=== PATIENT | male | born 1970 | race Caucasian/White ===

== ENCOUNTER 2018-09-13 18:23 | Inpatient (IN) | payer BC ==
[2018-09-13] MEDS ORDERED: SODIUM CHLORIDE 0.9% 2,000 ML IV STA (18:43)
[2018-09-13] MEDS ORDERED: PIPERACILLIN-TAZOBACTAM 3.375 GM in SODIUM CHLORIDE 0.9% 100 ML IVPB STA (18:44)
--- NOTE | 2018-09-13 19:18 | ED ---
Abdominal Pain HPI - General Source: patient, family, RN notes reviewed Mode of arrival: ambulatory Limitations: no limitations <Kemar Padron - Last Filed: 09/13/18 19:59> <Madhu Trujillo - Last Filed: 09/13/18 20:46> - General Chief Complaint: Abdominal Pain Stated Complaint: Appendix issue, sent by DR Herrera Seen by Provider: 09/13/18 18:43 - History of Present Illness Initial Comments: 48-year-old male presents emergency Department chief complaint right-sided abdominal pain. Patient states he had severe pain 2 weeks ago was seen by PCP on Monday and had CT ordered today. Patient states he had CT was called informed that he has acute appendicitis. Patient states still has pain and right lower quadrant. He denies any dysuria, hematuria, melena, hematochezia. Patient states he still is eating at this point. Patient has not seen a recent general surgeon. Patient states that he has some right lower abdominal swelling. (Kemar Padron) - Related Data Home Medications Medication Instructions Recorded Confirmed Amoxic-Pot Clav 875-125Mg 1 tab PO Q12HR 09/13/18 09/13/18 [Augmentin 875-125] Lisinopril-Hctz 20-25 mg 1 tab PO DAILY 09/13/18 09/13/18 [Zestoretic 20-25] metFORMIN HCL [Glucophage] 500 mg PO BID 09/13/18 09/13/18 Allergies Allergy/AdvReac Type Severity Reaction Status Date / Time No Known Allergies Allergy Verified 09/13/18 18:52 Review of Systems ROS Other: All systems not noted in ROS Statement are negative. <Kemar Padron - Last Filed: 09/13/18 19:59> ROS Other: All systems not noted in ROS Statement are negative. <Madhu Trujillo - Last Filed: 09/13/18 20:46> ROS Statement: Those systems with pertinent positive or pertinent negative responses have been documented in the HPI. Past Medical History Past Medical History: Diabetes Mellitus, Hypertension History of Any Multi-Drug Resistant Organisms: None Reported Past Surgical History: No Surgical Hx Reported Past Psychological History: No Psychological Hx Reported Smoking Status: Never smoker Past Alcohol Use History: None Reported Past Drug Use History: None Reported <Kemar Padron - Last Filed: 09/13/18 19:59> General Exam Limitations: no limitations General appearance: alert, in no apparent distress Head exam: Present: atraumatic, normocephalic, normal inspection Respiratory exam: Present: normal lung sounds bilaterally. Absent: respiratory distress, wheezes, rales, rhonchi, stridor Cardiovascular Exam: Present: regular rate, normal rhythm, normal heart sounds. Absent: systolic murmur, diastolic murmur, rubs, gallop, clicks GI/Abdominal exam: Present: soft, tenderness (Minimal Right lower), normal bowel sounds. Absent: distended, guarding, rebound, rigid Back exam: Absent: CVA tenderness (R), CVA tenderness (L) Skin exam: Present: warm, dry, intact, normal color. Absent: rash <Kemar Padron - Last Filed: 09/13/18 19:59> Course <Kemar Padron - Last Filed: 09/13/18 19:59> <Madhu Trujillo - Last Filed: 09/13/18 20:46> Vital Signs 09/13/18 09/13/18 09/13/18 18:33 19:43 20:26 Temperature 98.5 F 98.3 F Pulse Rate 78 77 Respiratory 18 17 Rate Blood Pressure 133/76 160/79 O2 Sat by Pulse 94 L 95 Oximetry - Reevaluation(s) Reevaluation #1: 09/13/18 20:02 PA supervision: I proceeded [id number] evaluation the patient did discuss the findings with him and his . Patient did have the onset of lower abdominal pain approximately 2 weeks ago. Is very severe initially has gotten better since. Now is just a dull sensation. He was seen by his doctor and had a CAT scan done which did show evidence of acute appendicitis. On exam he has no tenderness at this time he does have some evidence of some outpouchingof his right lower quadrant however. I did discuss the CAT scan findings and the case with Dr. Drake. Patient will be admitted he'll be nothing by mouth after midnight IV antibiotics. (Madhu Trujillo) Medical Decision Making - Lab Data Result diagrams: 09/13/18 19:03 09/13/18 19:03 <Kemar Padron - Last Filed: 09/13/18 19:59> - Lab Data Result diagrams: 09/13/18 19:03 09/13/18 19:03 - EKG Data -: EKG Interpreted by [facility] EKG shows normal: sinus rhythm (EKG shows normal sinus rhythm a 71 appear interval 184 QRS duration 160 QT since QTC 380/413 incomplete right bundle- branch block) <Madhu Trujillo - Last Filed: 09/13/18 20:46> - Medical Decision Making 48-year-old male presented for abnormal abdominal CT. Patient CT shows evidence of acute appendicitis. Patient case discussed with Dr. Wise who except admission nothing by mouth at midnight, clear liquids at this time and Zosyn for antibiotics. (Kemar Padron) - Lab Data Lab Results 09/13/18 09/13/18 Range/Units 19:03 19:03 WBC 13.3 H (3.8-10.6) k/uL RBC 5.02 (4.30-5.90) m/uL Hgb 14.7 (13.0-17.5) gm/dL Hct 44.1 (39.0-53.0) % MCV 87.9 (80.0-100.0) fL MCH 29.3 (25.0-35.0) pg MCHC 33.4 (31.0-37.0) g/dL RDW 13.0 (11.5-15.5) % Plt Count 391 (150-450) k/uL Neutrophils % 62 % Lymphocytes % 28 % Monocytes % 5 % Eosinophils % 2 % Basophils % 1 % Neutrophils # 8.3 H (1.3-7.7) k/uL Lymphocytes # 3.7 (1.0-4.8) k/uL Monocytes # 0.7 (0-1.0) k/uL Eosinophils # 0.3 (0-0.7) k/uL Basophils # 0.1 (0-0.2) k/uL Sodium 140 (137-145) mmol/L Potassium 4.6 (3.5-5.1) mmol/L Chloride 102 (98-107) mmol/L Carbon Dioxide 26 (22-30) mmol/L Anion Gap 12 mmol/L BUN 20 (9-20) mg/dL Creatinine 1.01 (0.66-1.25) mg/dL Est GFR (CKD-EPI)AfAm >90 (>60 ml/min/1.73 sqM) Est GFR (CKD-EPI)NonAf 87 (>60 ml/min/1.73 sqM) Glucose 116 H (74-99) mg/dL Calcium 10.0 (8.4-10.2) mg/dL Total Bilirubin 0.5 (0.2-1.3) mg/dL AST 36 (17-59) U/L ALT 52 (21-72) U/L Alkaline Phosphatase 94 (38-126) U/L Total Protein 7.5 (6.3-8.2) g/dL Albumin 4.6 (3.5-5.0) g/dL Amylase 65 (30-110) U/L Lipase 102 (23-300) U/L Disposition <Kemar Padron - Last Filed: 09/13/18 19:59> <Madhu Trujillo - Last Filed: 09/13/18 20:46> Clinical Impression: Acute appendicitis Disposition: ADMITTED IP TO THIS HOSP Condition: Stable
[2018-09-13 19:19] LABS: Basophils # (A) 0.1 k/uL (0-0.2); Basophils % (A) 1 %; Eosinophils # (A) 0.3 k/uL (0-0.7); Eosinophils % (A) 2 %; HCT 44.1 % (39.0-53.0); HGB 14.7 gm/dL (13.0-17.5); Lymphocytes # (A) 3.7 k/uL (1.0-4.8); Lymphocytes % (A) 28 %; MCH 29.3 pg (25.0-35.0); MCHC 33.4 g/dL (31.0-37.0); MCV 87.9 fL (80.0-100.0); Monocytes # (A) 0.7 k/uL (0-1.0); Monocytes % (A) 5 %; Neutrophils # (A) 8.3 k/uL (1.3-7.7); Neutrophils % (A) 62 %; Platelet Count 391 k/uL (150-450); RBC 5.02 m/uL (4.30-5.90); WBC 13.3 k/uL (3.8-10.6)
[2018-09-13 19:35] LABS: ALT 52 U/L (21-72); AST 36 U/L (17-59); Albumin 4.6 g/dL (3.5-5.0); Alkaline Phosphatase 94 U/L (38-126); Amylase 65 U/L (30-110); Anion Gap 12 mmol/L; Blood Urea Nitrogen 20 mg/dL (9-20); Carbon Dioxide 26 mmol/L (22-30); Chloride 102 mmol/L (98-107); Glucose 116 mg/dL (74-99); Lipase 102 U/L (23-300); Potassium 4.6 mmol/L (3.5-5.1); Sodium 140 mmol/L (137-145); Total Bilirubin 0.5 mg/dL (0.2-1.3); Total Protein 7.5 g/dL (6.3-8.2)
[2018-09-13] MEDS ORDERED: NALOXONE 0.4 MG/ML 1 ML VIAL IV PRN (20:01)
[2018-09-13] MEDS ORDERED: HYDROmorphone 1 MG/ML 1 ML SYRINGE IVP PRN (20:01)
[2018-09-13] MEDS ORDERED: ONDANSETRON 4 MG/2 ML VIAL IVP PRN (20:01)
[2018-09-13 20:32] LABS: Appearance,Urine Clear (Clear); Bilirubin,Urine Negative (Negative); Blood,Urine Negative (Negative); Color,Urine Light Yellow; Glucose,Urine (UA) Negative (Negative); Ketones,Urine Negative (Negative); Leukocyte Esterase,Urine Negative (Negative); Nitrite,Urine Negative (Negative); PH, Urine 6.5 (5.0-8.0); Protein,Urine Negative (Negative); Urobilinogen,Urine <2.0 mg/dL (<2.0)
[2018-09-13 21:04] VITALS: BMI 40.9
[2018-09-14] MEDS: SODIUM CHLORIDE 0.9% 1,000 ML IV SCH ×3 (05:53→15:47)
[2018-09-14] MEDS: PIPERACILLIN-TAZOBACTAM 3.375 GM in SODIUM CHLORIDE 0.9% 100 ML IVPB SCH ×3 (05:53→21:45)
[2018-09-14] MEDS ORDERED: ceFAZolin 3 GM in SODIUM CHLORIDE 0.9% 100 ML IVPB ONE ×2 (07:48→14:00)
[2018-09-14] MEDS ORDERED: ACETAMINOPHEN IV (For NPO) 1,000 MG in EMPTY BAG 1 BAG IVPB ONE (07:48)
[2018-09-14] MEDS ORDERED: ENOXAPARIN 40 MG/0.4 ML SYRINGE SQ STA (07:48)
[2018-09-14 08:29] LABS: Basophils # (A) 0.1 k/uL (0-0.2); Basophils % (A) 1 %; Eosinophils # (A) 0.3 k/uL (0-0.7); Eosinophils % (A) 3 %; HCT 44.5 % (39.0-53.0); HGB 14.1 gm/dL (13.0-17.5); Lymphocytes # (A) 2.6 k/uL (1.0-4.8); Lymphocytes % (A) 25 %; MCH 28.8 pg (25.0-35.0); MCHC 31.8 g/dL (31.0-37.0); MCV 90.4 fL (80.0-100.0); Mean Platelet Volume 6.3; Monocytes # (A) 0.5 k/uL (0-1.0); Monocytes % (A) 5 %; Neutrophils # (A) 6.4 k/uL (1.3-7.7); Neutrophils % (A) 64 %; Platelet Count 346 k/uL (150-450); RBC 4.92 m/uL (4.30-5.90); RDW 13.1 % (11.5-15.5); WBC 10.1 k/uL (3.8-10.6)
[2018-09-14] MEDS: LISINOPRIL-HCTZ 20-25 MG 1 EACH TAB PO SCH (12:36)
--- NOTE | 2018-09-14 12:46 | P.GSHP ---
History of Present Illness H&P Date: 09/14/18 CHIEF COMPLAINT: Acute appendicitis HISTORY OF PRESENT ILLNESS: The patient is a 48-year-old male who presents with initial 3 week history of bilateral lower abdominal pain. 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 He reports that his abdominal pain grew worse over the last 2 days. No reports of nausea or vomiting. He states the intensity of the pain is moderate at the right lower quadrant. He presented with CT abdomen and pelvis consistent with acute appendicitis and with WBC over 13, 000 hence general surgery admission. PAST MEDICAL HISTORY: See list. PAST SURGICAL HISTORY: See list. CURRENT MEDICATIONS: See list. ALLERGIES: See list. SOCIAL HISTORY: Non-tobacco user. FAMILY HISTORY: Denies Crohns disease and ulcerative colitis. REVIEW OF ORGAN SYSTEMS: CONSTITUTIONAL: Denies any fever or chills. Denies recent weight loss. HEENT: Denies any trouble with vision, hearing or nosebleeds. No difficulty swallowing. LYMPHATIC: The patient denies any lumps and bumps around the neck. ENDOCRINE: Denies any thyroid disorders. Has blood sugar glucose intolerance. RESPIRATORY: Denies shortness of breath including chronic cough. Has sleep apnea CARDIOVASCULAR: Denies history of chest pain with exertion. GASTROINTESTINAL: Denies regurgitation of bile at night as well as intermittent nausea. No blood in stools. GENITOURINARY: Denies any blood in urine or increased urinary frequency. MUSCULOSKELETAL: Has current joint arthritis. Has back pain. NEUROLOGIC: Denies any numbness or tingling along the distal extremities. No seizure disorders or headaches. PSYCHIATRIC: Denies any depression or suicidal ideation. HEMATOLOGIC: Denies any abnormal bleeding or bruising. PHYSICAL EXAMINATION: GENERAL: Well developed and in no acute distress. Pleasant. HEENT: No sclera icterus. Extraocular movements grossly intact. Moist buccal mucosa. Head is atraumatic, normocephalic. Hears conversational speech. No nasal drainage. NECK: Supple without lymphadenopathy. No JV distention. CHEST: Non-labored respirations and equal bilateral excursions. CARDIOVASCULAR: Regular rate and rhythm. Palpable 2+ radial pulses. ABDOMEN: Soft, tender at the right lower quadrant without guarding. MUSCULOSKELETAL: No clubbing, cyanosis or edema. NEUROLOGIC: No focal or lateralizing signs. PSYCH: Appropriate affect. Alert and oriented to person, place and time. SKIN: Well perfused. Good skin turgor. LABS: Reviewed STUDIES: CT of the abdomen and pelvis reviewed with findings consistent with appendicitis. ASSESSMENT: 1. Right lower quadrant pain. 2. Appendicitis. 3. Leukocytosis. PLAN: 1. I have discussed benefits and risks of robotic appendectomy. 2. Bilateral SCDs. 3. Antibiotics. 4. DVT prophylaxis with heparin. 5. GI prophylaxis. Thank you very much for allowing me to participate in the care of your patient. Past Medical History Past Medical History: Diabetes Mellitus, Hypertension, Sleep Apnea/CPAP/BIPAP Additional Past Medical History / Comment(s): uses cpap machine History of Any Multi-Drug Resistant Organisms: None Reported Past Surgical History: No Surgical Hx Reported Past Anesthesia/Blood Transfusion Reactions: No Reported Reaction Additional Past Anesthesia/Blood Transfusion Reaction / Comment(s): pt has never had general aa Smoking Status: Never smoker - Past Family History Mother Family Medical History: Hypertension Additional Family Medical History / Comment(s): heart disease on mom's side of family Father History Unknown: Yes Medications and Allergies Home Medications Medication Instructions Recorded Confirmed Type Amoxic-Pot Clav 875-125Mg 1 tab PO Q12HR 09/13/18 09/13/18 History [Augmentin 875-125] Lisinopril-Hctz 20-25 mg 1 tab PO DAILY 09/13/18 09/13/18 History [Zestoretic 20-25] metFORMIN HCL [Glucophage] 500 mg PO BID 09/13/18 09/13/18 History Allergies Allergy/AdvReac Type Severity Reaction Status Date / Time No Known Allergies Allergy Verified 09/13/18 18:52 Surgical - Exam Vital Signs Temp Pulse Resp BP Pulse Ox 98.5 F 78 18 133/76 94 L 09/13/18 18:33 09/13/18 18:33 09/13/18 18:33 09/13/18 18:33 09/13/18 18:33 Results - Labs 09/14/18 08:02 09/13/18 19:03 Abnormal Lab Results - Last 24 Hours (Table) 09/13/18 09/13/18 Range/Units 19:03 19:03 WBC 13.3 H (3.8-10.6) k/uL Neutrophils # 8.3 H (1.3-7.7) k/uL Glucose 116 H (74-99) mg/dL Diabetes panel 09/13/18 Range/Units 19:03 Sodium 140 (137-145) mmol/L Potassium 4.6 (3.5-5.1) mmol/L Chloride 102 (98-107) mmol/L Carbon Dioxide 26 (22-30) mmol/L BUN 20 (9-20) mg/dL Creatinine 1.01 (0.66-1.25) mg/dL Glucose 116 H (74-99) mg/dL Calcium 10.0 (8.4-10.2) mg/dL AST 36 (17-59) U/L ALT 52 (21-72) U/L Alkaline Phosphatase 94 (38-126) U/L Total Protein 7.5 (6.3-8.2) g/dL Albumin 4.6 (3.5-5.0) g/dL Calcium panel 09/13/18 Range/Units 19:03 Calcium 10.0 (8.4-10.2) mg/dL Albumin 4.6 (3.5-5.0) g/dL Pituitary panel 09/13/18 Range/Units 19:03 Sodium 140 (137-145) mmol/L Potassium 4.6 (3.5-5.1) mmol/L Chloride 102 (98-107) mmol/L Carbon Dioxide 26 (22-30) mmol/L BUN 20 (9-20) mg/dL Creatinine 1.01 (0.66-1.25) mg/dL Glucose 116 H (74-99) mg/dL Calcium 10.0 (8.4-10.2) mg/dL Adrenal panel 09/13/18 Range/Units 19:03 Sodium 140 (137-145) mmol/L Potassium 4.6 (3.5-5.1) mmol/L Chloride 102 (98-107) mmol/L Carbon Dioxide 26 (22-30) mmol/L BUN 20 (9-20) mg/dL Creatinine 1.01 (0.66-1.25) mg/dL Glucose 116 H (74-99) mg/dL Calcium 10.0 (8.4-10.2) mg/dL Total Bilirubin 0.5 (0.2-1.3) mg/dL AST 36 (17-59) U/L ALT 52 (21-72) U/L Alkaline Phosphatase 94 (38-126) U/L Total Protein 7.5 (6.3-8.2) g/dL Albumin 4.6 (3.5-5.0) g/dL - Imaging CT scan - abdomen: report reviewed, image reviewed CT scan - pelvis: report reviewed, image reviewed (Imaging personally reviewed without findings of perforation) Assessment and Plan (1) Obstructive sleep apnea Current Visit: Yes Status: Acute Code(s): G47.33 - OBSTRUCTIVE SLEEP APNEA ( ADULT) (PEDIATRIC) SNOMED Code(s): 70128499 (2) Morbid obesity due to excess calories Current Visit: Yes Status: Acute Code(s): E66.01 - MORBID (SEVERE) OBESITY DUE TO EXCESS CALORIES SNOMED Code(s): 648789954 (3) Obesity, morbid, BMI 40.0-49.9 Current Visit: Yes Status: Acute Code(s): E66.01 - MORBID (SEVERE) OBESITY DUE TO EXCESS CALORIES SNOMED Code(s): 054025907 (4) Hypertensive heart disease Current Visit: Yes Status: Acute Code(s): I11.9 - HYPERTENSIVE HEART DISEASE WITHOUT HEART FAILURE SNOMED Code(s): 12718003 (5) Diabetes type 2, controlled Current Visit: Yes Status: Acute Code(s): E11.9 - TYPE 2 DIABETES MELLITUS WITHOUT COMPLICATIONS SNOMED Code(s): 14136027 (6) Acute appendicitis Current Visit: Yes Status: Acute Code(s): K35.80 - UNSPECIFIED ACUTE APPENDICITIS SNOMED Code(s): 87069753
[2018-09-14] MEDS ORDERED: ENOXAPARIN 40 MG/0.4 ML SYRINGE SQ SCH (14:00)
--- NOTE | 2018-09-14 16:37 | CONS ---
CONSULTATION DATE OF CONSULTATION: 09/13/2018 REASON FOR CONSULTATION: Medical management requested by Dr. Wise. CONSULTATION: This is a pleasant 48-year-old patient who follows with Dr. Campuzano. Chronic stable medical conditions include diabetes, hypertension, obstructive sleep apnea. The patient is here with his and mother. 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 Subsequently it settled down in 2 days and just remained as a dull ache. Patient simply decided to drive back. The patient's pain remained the same. The patient saw Dr. Campuzano about 8 days ago and just had slight discomfort in the right lower quadrant. He decided to get a CT scan done. That was done yesterday and did show acute appendicitis. The patient is able to get around with his usual activity. No nausea or vomiting. No fever. No chills. No change in his bowel movements. Patient was admitted for the same, now scheduled for surgery later today. REVIEW OF SYSTEMS: CONSTITUTIONAL: None. HEENT: None. RESPIRATORY: None. CARDIOVASCULAR: None. GASTROINTESTINAL: As above. GENITOURINARY: None. MUSCULOSKELETAL: None. DERMATOLOGICAL: None. HEMATOLOGICAL: None. LYMPHATICS: None. PSYCHIATRY: None. NEUROLOGICAL: None. PAST MEDICAL HISTORY: 1. Diabetes mellitus, type 2. 2. Hypertension. 3. Obstructive sleep apnea. Uses CPAP. PAST SURGICAL HISTORY: None. SOCIAL HISTORY: The patient is a mail room clerk. Does not smoke. Does not drink alcohol. . FAMILY HISTORY: Heart disease and hypertension. HOME MEDICATIONS: 1. Glucophage 500 mg b.i.d. 2. Zestoretic 20/25 one tablet p.o. daily. 3. Augmentin 875 one tablet p.o. q.12. ALLERGIES: NONE. PHYSICAL EXAMINATION: VITAL SIGNS ON PRESENTATION: Temperature 98.5, pulse 78, respiration 18, blood pressure 133/76, pulse ox 94% on room air. GENERAL APPEARANCE: Well built; BMI 40.9. Sitting up in a chair. Comfortable. EYES: Pupils equal. Conjunctivae normal. HEENT: External appearance of nose and ears normal. Oral cavity normal. NECK: JVD not raised. Mass not palpable. RESPIRATORY: Effort normal. Lungs are clear. CARDIOVASCULAR: First and second sounds normal. No edema. ABDOMEN: Soft, non-tender. Liver and spleen not palpable. LYMPHATIC: No lymph node palpable in neck or axillae. PSYCHIATRY: Alert and oriented x3. Mood and affect normal. NEUROLOGICAL: Pupils equal. Cranial nerves grossly intact. Power and sensation grossly intact. INVESTIGATIONS: White count 13.3, hemoglobin 14.7, potassium 4.6. UA negative. CT scan of the abdomen and pelvis from yesterday showed some hepatic steatosis and also possibly some gallstones; also evidence of possible appendicitis. ASSESSMENT: 1. Acute appendicitis. Highly doubt it but cannot rule out encased appendicular abscess. 2. Diabetes mellitus, type 2, on oral hypoglycemic. 3. Morbid obesity. BMI of 40.3. 4. Obstructive sleep apnea. Uses CPAP machine. PLAN: Patient is on IV Zosyn, IV fluids. Zestoretic will be resumed. Will hold off patient's metformin. Accu-Cheks will be followed. Lovenox for DVT prophylaxis. Care was discussed with the patient. Questions were answered. The patient is due to go down for surgery this afternoon. From a cardiovascular standpoint, patient is at low risk for surgery, with no contraindication to same. Care was discussed with the patient and family. Questions were answered. Thank you, Dr. Wise. MMBHAVNAL / IJN: [id number] /
[2018-09-14 16:40] LABS: Glucose,Whole Blood 70 mg/dL (75-99)
[2018-09-14] MEDS ORDERED: IV FLUID CONTINUATION 1,000 ML IV ONE ×2 (16:47)
[2018-09-14] MEDS ORDERED: fentaNYL (PF) 50 MCG/ML 2 ML AMP ONE (17:02)
[2018-09-14] MEDS ORDERED: HYDROmorphone (PF) 1 MG/ML ONE (17:02)
[2018-09-14] MEDS ORDERED: NEOSTIGMINE 1 MG/ML 10 ML VIAL ONE (17:02)
[2018-09-14] MEDS ORDERED: LIDOCAINE 1% INJ 10MG/ML (20 ML MDV) ONE (17:02)
[2018-09-14] MEDS ORDERED: GLYCOPYRROLATE 0.2 MG/ML 2 ML VIAL ONE (17:02)
[2018-09-14] MEDS ORDERED: MIDAZOLAM 2 MG/2 ML VIAL ONE (17:02)
[2018-09-14] MEDS ORDERED: SUCCINYLCHOLINE CHLORIDE 100 MG/5 ML SYR IV ONE (17:02)
[2018-09-14] MEDS ORDERED: PHENYLEPHRINE-0.9% NACL SYG 1 MG/10 ML SYRINGE ONE (17:02)
[2018-09-14] MEDS ORDERED: ROCURONIUM BROMIDE 10 MG/ML 10 ML VIAL IV ONE (17:02)
[2018-09-14] MEDS ORDERED: PROPOFOL 10 MG/ML 20 ML VIAL IV ONE (17:02)
[2018-09-14] MEDS: INSULIN ASPART (NovoLOG) 100 UNIT/ML VIAL SQ SCH ×2 (17:23→21:38)
[2018-09-14] MEDS ORDERED: BUPIVACAIN-EPI 0.25%-1:200,000 30 ML VIAL SQ ONE (17:29)
[2018-09-14] MEDS ORDERED: LACTATED RINGERS 1,000 ML IV ONE (17:39)
[2018-09-14 20:09] LABS: Glucose,Whole Blood 121 mg/dL (75-99)
[2018-09-14] MEDS ORDERED: NALOXONE 0.4 MG/ML 1 ML VIAL IV PRN (20:15)
--- NOTE | 2018-09-14 20:22 | P.OP ---
Date of Procedure: 09/14/18 Description of Procedure: SURGEON: GILDA WISE MD Preoperative Diagnosis: 1. Right lower quadrant abdominal pain 2. Acute appendicitis. 3. Diabetes type 2, controlled 4. Morbid obesity due to excess calories, BMI 40.9 5. Hypertensive heart disease 6. Obstructive sleep apnea Postoperative Diagnosis: 1. Right lower quadrant abdominal pain 2. Chronic appendicitis with localized rupture and peritonitis with phlegmon 3. Diabetes type 2, controlled 4. Morbid obesity due to excess calories, BMI 40.9 5. Hypertensive heart disease 6. Obstructive sleep apnea 7. Severe peritoneal adhesions right lower quadrant due to infection Procedure(s) Performed: 1. Robotic-assisted daVinci Xi laparoscopic lysis of adhesions over 1.5 hrs 2. Robotic-assisted daVinci Xi laparoscopic appendectomy 3. Placement of MIR drain #19 right lower quadrant Anesthesia: GETA, local Surgeon: Gilda Wise Estimated Blood Loss (ml): 50 Pathology: other (appendix, aerobic and anerobic culture of peritoneal fluid sent from MIR fluid sent separately) Condition: stable Disposition: floor Operative Findings: 1. Phlegmon along right lower quadrant consistent with previous rupture, chronic appendicitis over 3 weeks 2. Severe adhesions involving appendix from prior rupture 3. MIR drain placed at appendiceal stump 4. Risk of appendiceal stump blow out described to family and will continue on prolonged antibiotics with drain management INDICATIONS: The patient is a 48-year-old male who presents with appendicitis per CT scan. Surgical intervention was described in detail. Benefits and risks , including infection, open surgery, and possibility for additional surgery was discussed at length. Informed consent was obtained. All questions of the patient and family were answered. DESCRIPTION: The patient was transferred to the operating room and placed in supine position. The patient had previously voided. The abdomen was then prepped and draped in standard sterile fashion as Ioban was placed along the abdomen to minimize any contamination of skin floor. After a timeout protocol was performed, attention was then brought to the left upper quadrant whereby a 0 degree 5 mm laparoscopic trocar entry was performed. The abdominal cavity was entered and insufflated to 15 mmHg pressure, which was tolerated well. Diagnostic laparoscopy demonstrated no injury to bowel, viscera or mesentery. Adhesions were confirmed of the right lower quadrant of omentum, small bowel to the abdominal wall. Localized phlegmon was found. Next a robotic 12-mm trocar was placed along the right upper quadrant, 15-cm superior from the pelvis. A 8 mm port was placed along the left lower quadrant and another 8-mm port along the epigastrium. Ports were placed 10 cm apart from each other including 15-20 cm away from the target anatomy of the right pelvis. The patient was then placed in Trendelenburg position, at least 14 and right side up at least 6. The robotic da Epifanio XI system was primed and docked from the left side of the patient. Using atraumatic graspers and vessel sealer, the robotic system was docked and primed as described. Instruments were interchanged by the human resources assistant including graspers, robotic stapler and vessel sealer. Next, attention was brought to identify the cecum. A systematic view within the abdominal cavity was started with the small bowel which was remarkable for diffuse adhesions localized at the right lower quadrant. The base of the cecum was with inflammation. The appendix was ruptured near the base with moderate dissection performed over 1.5 hrs for dense concrete-like adhesions consistent with sub-acute to chronic appendiceal rupture. An abscess of less than 5-mL was aspirated from the abdomen. Staple loads 45 mm blue robotic staple loads were fired along the base of the appendix. The staple line was hemostatic. Hemostasis was checked prior to undocking the robot. The robot was undocked. I re-scrubbed into the case. A round #19 drain was placed via the left lower quadrant port and positioned at the right lower quadrant and pelvis after irrigating the abdomen with normal saline until the aspirant was clear. A drain stitch 2-0 nylon was placed with the bulb attached separately. The specimen was removed from the abdominal cavity with an Endo Catch bag through the 12 mm trocar at the right upper quadrant. All instruments and pneumoperitoneum were evacuated from the abdominal cavity. Local anesthetic was infiltrated to all wounds for postop analgesia. All incisions were also cleansed with diluted hydrogen peroxide. An Optifoam surgical dressing was placed over the right upper quadrant incision and drain site. Exofin glue was applied to the rest of the skin incisions. The patient had tolerated the procedure well. The patient was extubated successfully. The patient was transferred to the postanesthesia care unit in stable condition.
[2018-09-14] MEDS ORDERED: ONDANSETRON 4 MG/2 ML VIAL IVP ONE (20:38)
[2018-09-14] MEDS ORDERED: PROMETHAZINE INJ 25 MG/ML 1 ML VIAL IVPB ONE (20:45)
[2018-09-14] MEDS: HYDROmorphone 1 MG/ML 1 ML SYRINGE IVP ONE ×2 (20:50→21:02)
[2018-09-15] MEDS: SODIUM CHLORIDE 0.9% 1,000 ML IV SCH ×3 (01:36→21:35)
[2018-09-15] MEDS: HYDROmorphone 0.5 MG/0.5 ML SYRINGE IVP PRN ×2 (04:09→08:25)
[2018-09-15] MEDS: PIPERACILLIN-TAZOBACTAM 3.375 GM in SODIUM CHLORIDE 0.9% 100 ML IVPB SCH ×3 (04:27→20:24)
[2018-09-15 08:10] LABS: Glucose,Whole Blood 124 mg/dL (75-99)
[2018-09-15] MEDS: INSULIN ASPART (NovoLOG) 100 UNIT/ML VIAL SQ SCH ×4 (08:17→21:34)
[2018-09-15] MEDS: LISINOPRIL-HCTZ 20-25 MG 1 EACH TAB PO SCH (08:21)
[2018-09-15] MEDS: ENOXAPARIN 40 MG/0.4 ML SYRINGE SQ SCH (08:21)
[2018-09-15 10:12] LABS: HCT 42.2 % (39.0-53.0); HGB 13.5 gm/dL (13.0-17.5); MCH 29.3 pg (25.0-35.0); MCV 91.4 fL (80.0-100.0); Platelet Count 351 k/uL (150-450); RBC 4.62 m/uL (4.30-5.90); RDW 13.1 % (11.5-15.5); WBC 15.5 k/uL (3.8-10.6)
--- NOTE | 2018-09-15 10:13 | P.PN ---
Progress Note - Text Progress Note Date: 09/15/18 The patient is resting comfortable in his bed. He states his pain is 8 of 10. On exam his vital signs are stable. His abdomen soft. Status post laparoscopic appendectomy for acute appendicitis. Patient to receive IV antibiotic. He may be discharged home tomorrow.
[2018-09-15 11:37] LABS: Lymphocytes % (A) 14 %; Monocytes % (A) 6 %; Neutrophils % (A) 78 %
[2018-09-15 11:55] LABS: Glucose,Whole Blood 126 mg/dL (75-99)
[2018-09-15 12:01] LABS: Basophils % (A) 0 %; Eosinophils % (A) 0 %
[2018-09-15 12:02] LABS: Basophils # (A) 0.1 k/uL (0-0.2); Eosinophils # (A) 0.1 k/uL (0-0.7); Lymphocytes # (A) 2.1 k/uL (1.0-4.8); Monocytes # (A) 0.9 k/uL (0-1.0)
[2018-09-15] MEDS: HYDROcodone/APAP 5-325MG 1 EACH TAB PO PRN ×3 (13:49→22:52)
[2018-09-15 17:02] LABS: Hemoglobin A1C 7.2 % (4.0-6.0)
[2018-09-15 17:25] LABS: Glucose,Whole Blood 98 mg/dL (75-99)
[2018-09-15 20:54] LABS: Glucose,Whole Blood 120 mg/dL (75-99)
[2018-09-15] MEDS ORDERED: metroNIDAZOLE-NS PMX 500 MG in SALINE 1 100ML.BAG IVPB SCH (22:00)
--- NOTE | 2018-09-15 22:44 | PN ---
PROGRESS NOTE DATE OF SERVICE: 09/15/2018. PRESENTING COMPLAINT: Appendicular abscess. INTERVAL HISTORY: This patient was admitted with right lower quadrant pain, found to have phlegmon and a ruptured appendix. Has a MIR drain in place. Some pain is present. Did tolerate a little bit of diet this morning. Lying in bed, tired. REVIEW OF SYSTEMS: Done for constitutional, cardiovascular, GI, pulmonary; relevant findings as above. CURRENT MEDICATIONS: Reviewed that include IV Zosyn. PHYSICAL EXAMINATION: Temperature 99.8, pulse 62, respirations 16, blood pressure 135/66, pulse ox 92 percent on room air. GENERAL APPEARANCE: Lying in bed tired-appearing. EYES: Pupils equal. Conjunctivae normal. NECK: JVD not raised. Mass not palpable. Respiratory effort normal. LUNGS: Clear. CARDIOVASCULAR: 1st and 2nd sounds. No edema. ABDOMEN: Right lower quadrant tenderness. MIR drain in place. Liver and spleen not palpable. PSYCHIATRY: Alert and oriented x3. Mood and affect normal. INVESTIGATIONS: White count 15.5, hemoglobin 13.5. Cultures are pending. ASSESSMENT: 1. Right lower quadrant phlegmon from ruptured appendix, now with a MIR drain in place. 2. Diabetes mellitus type 2, on oral hypoglycemic. 3. Morbid obesity, BMI 40.3. 4. Obstructive sleep apnea, uses CPAP machine. PLAN: Continue current medication and treatment plan. Patient is on IV Zosyn. Normal saline. We will also add IV Flagyl. Care was discussed with the patient. Encouraged to be out of bed. MMODL / IJN: [id number] /
--- NOTE | 2018-09-15 23:53 | CONS ---
CONSULTATION ADDENDUM: My consultation dictated on 09/14/2018 at 2:21 pm. DATE OF CONSULTATION: Correct date of consultation is 09/14/2018. MMODL / IJN: [id number] /
[2018-09-16] MEDS: metroNIDAZOLE-NS PMX 500 MG in SALINE 1 100ML.BAG IVPB SCH ×4 (00:22→17:40)
[2018-09-16] MEDS: HYDROcodone/APAP 5-325MG 1 EACH TAB PO PRN ×5 (03:58→21:19)
[2018-09-16] MEDS: PIPERACILLIN-TAZOBACTAM 3.375 GM in SODIUM CHLORIDE 0.9% 100 ML IVPB SCH ×3 (05:18→21:18)
[2018-09-16 07:19] LABS: Glucose,Whole Blood 118 mg/dL (75-99)
[2018-09-16] MEDS: INSULIN ASPART (NovoLOG) 100 UNIT/ML VIAL SQ SCH ×4 (07:26→21:15)
[2018-09-16] MEDS: ENOXAPARIN 40 MG/0.4 ML SYRINGE SQ SCH (08:34)
[2018-09-16] MEDS: LISINOPRIL-HCTZ 20-25 MG 1 EACH TAB PO SCH (08:34)
[2018-09-16] MEDS: SODIUM CHLORIDE 0.9% 1,000 ML IV SCH ×2 (08:35→19:24)
--- NOTE | 2018-09-16 10:51 | P.PN ---
Progress Note - Text Progress Note Date: 09/16/18 The patient feels slightly better. He states his pain is a 7-8 out of 10. He' s had some minimal flatus. On exam his vital signs are stable. His abdomen soft. His incision sites are mildly tender. Status post laparoscopic appendectomy for severe acute appendicitis. Patient he received IV antibiotic. We discussed with discharged home tomorrow.
[2018-09-16 11:59] LABS: Glucose,Whole Blood 119 mg/dL (75-99)
[2018-09-16 17:04] LABS: Glucose,Whole Blood 97 mg/dL (75-99)
--- NOTE | 2018-09-16 20:45 | PN ---
PROGRESS NOTE DATE OF SERVICE: September 16, 2018. PRESENTING COMPLAINT: Abdominal pain. INTERVAL HISTORY: Patient admitted with right lower quadrant pain, found to have a phlegmon with ruptured appendix. MIR drain is in place. Has been tolerating his diet. Pain is getting better. No nausea, vomiting, did have a bowel movement. Up and about in the hallway with . REVIEW OF SYSTEMS: Done for constitutional, cardiovascular, GI, pulmonary and relevant findings as above. CURRENT MEDICATIONS: Reviewed that include IV Flagyl and Zosyn. PHYSICAL EXAMINATION: VITAL SIGNS: Temperature 98, pulse 70, respiratory 18, blood pressure 101/54, pulse 91 percent on room air. GENERAL APPEARANCE: Sitting up, comfortable. EYES: Pupils equal. Conjunctivae normal. NECK: JVD not raised. Mass not palpable. RESPIRATORY: Effort normal. LUNGS: Clear. CARDIOVASCULAR: 1st and 2nd sounds normal. No edema. ABDOMEN: Right lower quadrant tenderness. MIR drain in place. Liver and spleen not palpable. PSYCHIATRY: Alert and oriented x3. Mood and affect normal. INVESTIGATIONS: No blood work from today. Accu-Cheks are noted. Wound cultures are pending. ASSESSMENT: 1. Right lower quadrant phlegmon from ruptured appendix with a MIR drain in place. The patient is putting about 50 mL a shift with cultures being negative till now. 2. Diabetes Mellitus type 2 on oral hypoglycemics. 3. Morbid obesity BMI 40.3. 4. Obstructive sleep apnea uses CPAP machine. PLAN: The patient is tolerating a diet, up and about. Continue with IV antibiotics. Clinically, patient is improving. Repeat CBC in the morning. Decision about discharge will be determined by Dr. Wise. Care was discussed with the patient and the . Encouraged to keep ambulating. MMODL / IJN: [id number] /
[2018-09-16 20:54] LABS: Glucose,Whole Blood 96 mg/dL (75-99)
[2018-09-17] MEDS: metroNIDAZOLE-NS PMX 500 MG in SALINE 1 100ML.BAG IVPB SCH ×5 (01:26→23:03)
[2018-09-17] MEDS: HYDROcodone/APAP 5-325MG 1 EACH TAB PO PRN ×3 (03:55→17:01)
[2018-09-17] MEDS: PIPERACILLIN-TAZOBACTAM 3.375 GM in SODIUM CHLORIDE 0.9% 100 ML IVPB SCH ×3 (06:08→21:27)
[2018-09-17 07:16] LABS: Glucose,Whole Blood 125 mg/dL (75-99)
[2018-09-17] MEDS: LISINOPRIL-HCTZ 20-25 MG 1 EACH TAB PO SCH (08:10)
[2018-09-17] MEDS: INSULIN ASPART (NovoLOG) 100 UNIT/ML VIAL SQ SCH ×4 (08:11→21:27)
[2018-09-17] MEDS: ENOXAPARIN 40 MG/0.4 ML SYRINGE SQ SCH (08:11)
[2018-09-17 09:28] LABS: Basophils # (A) 0.1 k/uL (0-0.2); Basophils % (A) 1 %; Eosinophils # (A) 0.3 k/uL (0-0.7); Eosinophils % (A) 4 %; HCT 39.7 % (39.0-53.0); HGB 13.1 gm/dL (13.0-17.5); Lymphocytes # (A) 1.8 k/uL (1.0-4.8); Lymphocytes % (A) 20 %; MCH 29.8 pg (25.0-35.0); MCV 90.5 fL (80.0-100.0); Mean Platelet Volume 6.6; Monocytes # (A) 0.4 k/uL (0-1.0); Monocytes % (A) 5 %; Neutrophils % (A) 69 %; Platelet Count 284 k/uL (150-450); RBC 4.38 m/uL (4.30-5.90); RDW 13.4 % (11.5-15.5); WBC 8.7 k/uL (3.8-10.6)
[2018-09-17 12:13] LABS: Glucose,Whole Blood 139 mg/dL (75-99)
--- NOTE | 2018-09-17 17:01 | PN ---
PROGRESS NOTE DATE OF SERVICE: September 17, 2018. PRESENTING COMPLAINT: Abdominal surgery. INTERVAL HISTORY: Patient is status post ruptured appendix with a phlegmon. MIR drain remains in place. Up and about. Pain is improved. No fevers. The patient has been passing good flatus. No nausea or vomiting. REVIEW OF SYSTEMS: Done for constitutional, cardiovascular, GI, pulmonary; relevant findings as above. CURRENT MEDICATIONS: Reviewed that include IV Flagyl and Zosyn. PHYSICAL EXAMINATION: VITAL SIGNS: Temperature 97.5, pulse 53, respiratory 18, blood pressure 120/75, pulse ox 92 percent on room air. GENERAL APPEARANCE: Sitting up, awake. EYES: Pupils equal, conjunctivae normal. NECK: JVD not raised. Mass not palpable. RESPIRATORY: Effort normal. LUNGS: Clear. CARDIOVASCULAR: First and second sounds normal. No edema. ABDOMEN: Right abdominal tenderness with a MIR drain in place. Liver and spleen not palpable. No guarding or rigidity. PSYCHIATRY: Alert and oriented x3. Mood and affect normal. INVESTIGATIONS: White count 8.7, hemoglobin 13.1. ASSESSMENT: 1. Right lower quadrant phlegmon from ruptured appendix, a MIR drain in place, clinically improving. 2. Diabetes mellitus type 2 on oral hypoglycemics. 3. Morbid obesity BMI 40.3. 4. Obstructive sleep apnea uses CPAP machine. 5. The patient's wound cultures all have been negative. PLAN: Continue current medication and treatment plan including antibiotics. Follow with surgery. The patient is ambulating well in the hallway. MMODL / IJN: [id number] /
[2018-09-17 17:09] LABS: Glucose,Whole Blood 110 mg/dL (75-99)
[2018-09-17 20:24] LABS: Glucose,Whole Blood 105 mg/dL (75-99)
[2018-09-18] MEDS: HYDROcodone/APAP 5-325MG 1 EACH TAB PO PRN ×2 (03:00→09:27)
[2018-09-18] MEDS: PIPERACILLIN-TAZOBACTAM 3.375 GM in SODIUM CHLORIDE 0.9% 100 ML IVPB SCH (05:21)
--- NOTE | 2018-09-18 05:45 | P.PN ---
Subjective Progress Note Date: 09/17/18 CHIEF COMPLAINT: Appendicitis HISTORY OF PRESENT ILLNESS: The patient is a 48-year-old gentleman status post appendectomy, POD 3. He is tolerating diet. He reports decreased output from his MIR drain. He is passing flatus and had a bowel movement. Abdominal pain has improved. MIR color also improving from red to yellow. PHYSICAL EXAM: VITAL SIGNS: Reviewed GENERAL: Well-developed in no acute distress. HEENT: No sclera icterus. Extraocular movements grossly intact. Moist buccal mucosa. Head is atraumatic, normocephalic. Hears conversational speech. No nasal drainage. NECK: Supple without lymphadenopathy. CHEST: Non-labored respirations and equal bilateral excursions. CARDIOVASCULAR: Palpable 2+ radial pulses. Regular rate and regular rhythm ABDOMEN: Soft. Nondistended. No peritonitis. MIR serosanguinous. Dressing intact. No cellulitis. MUSCULOSKELETAL: No clubbing, cyanosis or edema. NEUROLOGIC: No focal or lateralizing signs. Cranial nerves II through XII grossly intact. PSYCH: Appropriate affect. Alert and oriented to person, place and time. SKIN: Well perfused. Good skin turgor. LABS: Reviewed ASSESSMENT: 1. Chronic appendicitis with rupture and localized peritonitis. PLAN: 1. Continue antibiotics for home for discharge anticipated for tomorrow. 2. Continue MIR drain for discharge Objective - Vital Signs Vital signs: Vital Signs Temp 97.9 F 09/17/18 23:00 Pulse 74 09/17/18 23:00 Resp 20 09/17/18 23:00 BP 112/57 09/17/18 23:00 Pulse Ox 97 09/17/18 23:00 Intake & Output 09/17/18 09/17/18 09/18/18 06:59 18:59 06:59 Intake Total 300 200 Output Total 20 40 Balance 280 -40 200 Intake: Oral 300 200 Output: Drainage 20 40 Right Anterior Abdomen 20 40 Other: Voiding Method Urinal Toilet # Voids 2 2 1 # Bowel Movements 0 1 - Labs CBC & Chem 7: 09/17/18 08:54 09/13/18 19:03 Labs: Abnormal Lab Results - Last 24 Hours (Table) 09/17/18 09/17/18 09/17/18 Range/Units 07:08 12:06 17:07 POC Glucose (mg/dL) 125 H 139 H 110 H (75-99) mg/dL 09/17/18 Range/Units 20:23 POC Glucose (mg/dL) 105 H (75-99) mg/dL Microbiology - Last 24 Hours (Table) 09/13/18 19:03 Blood Culture - Preliminary Blood No Growth after 96 hours Assessment and Plan (1) Obstructive sleep apnea Current Visit: Yes Status: Acute Code(s): G47.33 - OBSTRUCTIVE SLEEP APNEA ( ADULT) (PEDIATRIC) SNOMED Code(s): 23230854 (2) Morbid obesity due to excess calories Current Visit: Yes Status: Acute Code(s): E66.01 - MORBID (SEVERE) OBESITY DUE TO EXCESS CALORIES SNOMED Code(s): 170670302 (3) Obesity, morbid, BMI 40.0-49.9 Current Visit: Yes Status: Acute Code(s): E66.01 - MORBID (SEVERE) OBESITY DUE TO EXCESS CALORIES SNOMED Code(s): 209024304 (4) Hypertensive heart disease Current Visit: Yes Status: Acute Code(s): I11.9 - HYPERTENSIVE HEART DISEASE WITHOUT HEART FAILURE SNOMED Code(s): 22570879 (5) Diabetes type 2, controlled Current Visit: Yes Status: Acute Code(s): E11.9 - TYPE 2 DIABETES MELLITUS WITHOUT COMPLICATIONS SNOMED Code(s): 34357440 (6) Acute appendicitis Current Visit: Yes Status: Acute Code(s): K35.80 - UNSPECIFIED ACUTE APPENDICITIS SNOMED Code(s): 77730844 (7) Chronic appendicitis Current Visit: Yes Status: Acute Code(s): K36 - OTHER APPENDICITIS SNOMED Code(s): 82796541 (8) Ruptured appendix Current Visit: Yes Status: Acute Code(s): K35.32 - ACUTE APPENDICITIS WITH PERF AND LOC PERITONITIS, W/O ABSCS SNOMED Code(s): 79779676 (9) Phlegmon Current Visit: Yes Status: Acute Code(s): L02.91 - CUTANEOUS ABSCESS, UNSPECIFIED SNOMED Code(s): 790681226 (10) Localized peritonitis Current Visit: Yes Status: Acute Code(s): K65.9 - PERITONITIS, UNSPECIFIED SNOMED Code(s): 50568031 (11) Peritoneal adhesions with obstruction Current Visit: Yes Status: Acute Code(s): K56.50 - INTESTNL ADHESIONS, UNSP TO PARTIAL VERSUS COMPLETE OBST SNOMED Code(s): 64860373
--- NOTE | 2018-09-18 05:56 | P.DS ---
Providers Date of admission: 09/14/18 20:16 Expected date of discharge: 09/18/18 Attending physician: Gilda Wise Consults: 09/13/18 20:01 Consult Physician Stat Consulting Provider: Eddie Medina Consult Reason/Comments: Medical management Do you want consulting provider notified?: Yes Primary care physician: Arsenio Campuzano - Discharge Diagnosis(es) (1) Obstructive sleep apnea Current Visit: Yes Status: Acute (2) Morbid obesity due to excess calories Current Visit: Yes Status: Acute (3) Obesity, morbid, BMI 40.0-49.9 Current Visit: Yes Status: Acute (4) Hypertensive heart disease Current Visit: Yes Status: Acute (5) Diabetes type 2, controlled Current Visit: Yes Status: Acute (6) Acute appendicitis Current Visit: Yes Status: Acute (7) Chronic appendicitis Current Visit: Yes Status: Acute (8) Ruptured appendix Current Visit: Yes Status: Acute (9) Phlegmon Current Visit: Yes Status: Acute (10) Localized peritonitis Current Visit: Yes Status: Acute (11) Peritoneal adhesions with obstruction Current Visit: Yes Status: Acute Hospital Course: Postoperative Diagnosis: 1. Right lower quadrant abdominal pain 2. Chronic appendicitis with localized rupture and peritonitis with phlegmon 3. Diabetes type 2, controlled 4. Morbid obesity due to excess calories, BMI 40.9 5. Hypertensive heart disease 6. Obstructive sleep apnea 7. Severe peritoneal adhesions right lower quadrant due to infection 8. Diverticulosis COURSE: The patient is a 48-year-old male who presented with appendicitis per CT scan. He underwent appendectomy with findings consistent with previous rupture and phlegmon including localized peritonitis and adhesions. Appendectomy with extensive lysis of adhesions was performed. He was kept in the hospital for his ruptured appendicitis including persistent leukocytosis and peritonitis. Increased risk of perforation of his stump appendectomy was described to family with his history of chronic appendicitis with phlegmon. Prior to discharge, he was tolerating diet. He was passing flatus. MIR remained serosanguineous. Discharge instructions were thoroughly reviewed. Pertinent Studies: CT demonstrating appendicitis Procedures: Procedure(s) Performed: 1. Robotic-assisted daVinci Xi laparoscopic lysis of adhesions over 1.5 hrs 2. Robotic-assisted daVinci Xi laparoscopic appendectomy 3. Placement of MIR drain #19 right lower quadrant Anesthesia: ODALYS, local Surgeon: Gilda Wise Estimated Blood Loss (ml): 50 Pathology: other (appendix, aerobic and anerobic culture of peritoneal fluid sent from MIR fluid sent separately) Condition: stable Disposition: floor Operative Findings: 1. Phlegmon along right lower quadrant consistent with previous rupture, chronic appendicitis over 3 weeks 2. Severe adhesions involving appendix from prior rupture 3. MIR drain placed at appendiceal stump 4. Risk of appendiceal stump blow out described to family and will continue on prolonged antibiotics with drain management Patient Condition at Discharge: Stable Plan - Discharge Summary Discharge Rx Participant: Yes New Discharge Prescriptions: New Ciprofloxacin HCl [Cipro] 500 mg PO Q12HR #14 tablet metroNIDAZOLE [Flagyl] 500 mg PO TID #21 tab HYDROcodone/APAP 5-325MG [[place] 5-325] 1 tab PO Q4HR PRN 3 Days #18 tab PRN Reason: Pain Continue metFORMIN HCL [Glucophage] 500 mg PO BID Lisinopril-Hctz 20-25 mg [Zestoretic 20-25] 1 tab PO DAILY Discontinued Amoxic-Pot Clav 875-125Mg [Augmentin 875-125] 1 tab PO Q12HR Discharge Medication List Lisinopril-Hctz 20-25 mg [Zestoretic 20-25] 1 tab PO DAILY 09/13/18 [History] metFORMIN HCL [Glucophage] 500 mg PO BID 09/13/18 [History] Ciprofloxacin HCl [Cipro] 500 mg PO Q12HR #14 tablet 09/18/18 [Rx] HYDROcodone/APAP 5-325MG [[place] 5-325] 1 tab PO Q4HR PRN 3 Days #18 tab [Rx] metroNIDAZOLE [Flagyl] 500 mg PO TID #21 tab 09/18/18 [Rx] Follow up Appointment(s)/Referral(s): Octavio Campuzano MD [Primary Care Provider] - 1-2 days Gilda Wise MD [STAFF PHYSICIAN] - 09/25/18 Patient Instructions/Handouts: Laparoscopic Appendectomy (DC), [place]-Reagan Drain Care (DC), Peritonitis (DC), Appendicitis (GEN) Activity/Diet/Wound Care/Special Instructions: May shower BUT KEEP DRAIN SITE DRY. No bathtub soaks. Record daily measurement of drain. DO NOT RETURN TO WORK UNTIL CLEARED BY SURGEON. Diet as tolerated. Earliest return to work anticipated for October 08. Discharge Disposition: HOME SELF-CARE
[2018-09-18] MEDS: metroNIDAZOLE-NS PMX 500 MG in SALINE 1 100ML.BAG IVPB SCH ×2 (06:16→09:27)
[2018-09-18 07:20] LABS: Glucose,Whole Blood 114 mg/dL (75-99)
[2018-09-18] MEDS: INSULIN ASPART (NovoLOG) 100 UNIT/ML VIAL SQ SCH (07:21)
[2018-09-18] MEDS: ENOXAPARIN 40 MG/0.4 ML SYRINGE SQ SCH (07:22)
[2018-09-18] MEDS: LISINOPRIL-HCTZ 20-25 MG 1 EACH TAB PO SCH (07:22)
[2018-09-18 07:54] VITALS: BP 97/58; PULSE 61; RESP 18; TEMP 97.5
== END 2018-09-18 10:53 | disposition home or self-care (01) | DRG 336 ==
LOC: EC 18:23 → 4MS4W 20:02 → OBSVTOIN 09-14 20:16
PROVIDERS: ADMIT Surgery Plastic and Reconstructive Surgery; ATTEND Surgery Plastic and Reconstructive Surgery
PROC: 8E0W3CZ Robotic Assisted Procedure of Trunk Region, Percutaneous Approach (ICD-10-PCS; 2018-09-14)
PROC: 0DNW4ZZ Release Peritoneum, Percutaneous Endoscopic Approach (ICD-10-PCS; 2018-09-14)
PROC: 0DTJ4ZZ Resection of Appendix, Percutaneous Endoscopic Approach (ICD-10-PCS; principal; 2018-09-14 08:35)
DX: K35.33 Acute appendicitis with perforation, localized peritonitis, and gangrene, with abscess (principal); Z68.41 Body mass index [BMI] 40.0-44.9, adult; K56.50 Intestinal adhesions [bands], unspecified as to partial versus complete obstruction; E66.01 Morbid (severe) obesity due to excess calories; I11.9 Hypertensive heart disease without heart failure; K36 Other appendicitis; E11.9 Type 2 diabetes mellitus without complications; G47.33 Obstructive sleep apnea (adult) (pediatric); K57.90 Diverticulosis of intestine, part unspecified, without perforation or abscess without bleeding; Z79.84 Long term (current) use of oral hypoglycemic drugs; Z79.899 Other long term (current) drug therapy; Z82.49 Family history of ischemic heart disease and other diseases of the circulatory system
CPT/HCPCS: 36415; 80053; 81003; 82150; 83036; 83690; 85025; 87040; 87070; 87075; 87205; 88304; 93005; 96365; 99285

== ENCOUNTER → 2018-09-13 | Outpatient (CLI) | payer BC ==
[2018-09-13 14:33] LABS: Blood Urea Nitrogen 18 mg/dL (9-20)
--- NOTE | 2018-09-13 16:30 | CT ---
EXAMINATION TYPE: CT abdomen pelvis w con DATE OF EXAM: 09/13/2018 COMPARISON: None HISTORY: Right lower quadrant abdominal pain. CT DLP: 2724.6 mGycm Automated exposure control for dose reduction was used. TECHNIQUE: Helical acquisition of images from the lung bases through the pelvis have been completed. CONTRAST: Performed with Oral Contrast and with IV Contrast, patient injected with 100ml mL of Isovue 300. FINDINGS: Small umbilical hernia contains fat. LUNG BASES: Minimal patchy density may reflect atelectasis, no pleural or pericardial effusion. AORTA: No significant abnormality is appreciated. LIVER/GB: Liver shows low attenuation possibly due to hepatic steatosis, there are likely gallstones noted within the gallbladder. PANCREAS: No significant abnormality is seen. SPLEEN: No significant abnormality is seen. ADRENALS: No significant abnormality is seen. KIDNEYS: No significant abnormality is seen. REPRODUCTIVE ORGANS: No significant abnormality is seen BOWEL: The appendix shows abnormal periappendiceal increased attenuation within the fat compatible w ith inflammatory change, the appendix is dilated.. FREE AIR: No Free Air visible. ASCITES: None visible. PELVIC ADENOPATHY: None visualized. RETROPERITONEAL ADENOPATHY: No Retroperitoneal Adenopathy visible. URINARY BLADDER: No significant abnormality is seen. OSSEOUS STRUCTURES: Degenerative disc changes, facet arthropathy noted at the lower lumbar spine. IMPRESSION: FINDINGS COMPATIBLE WITH APPENDICITIS. REPORT RELAYED TO THE OFFICE OF DR. Campuzano telephonically at the time of interpretation. Additional findings above.
== END | disposition home or self-care (01) ==
LOC: RADCTMAIN 13:41
PROVIDERS: ATTEND Family Medicine
DX: R10.31 Right lower quadrant pain (principal)
CPT/HCPCS: 82565; 84520; 74177; 36415; Q9967

== ENCOUNTER → 2022-12-06 | Outpatient (CLI) | payer BC ==
--- NOTE | 2022-12-06 15:47 | P.SLEEP ---
History of Present Illness H&P Date: 12/06/22 [id number] male patient known history of obstructive sleep apnea original diagnosis was made more than 7 years ago through [facility]. Official documentation is not available. The patient is currently using a ResMed S9 series at a pressure of 16 cm of water.. His machine is ma lfunctioning. His machine has become noisy and turns off unexpectedly in the middle of the night and the patient is very much interested in updating his CPAP machine. He is currently using the air fit F10 fullface mask and the patient is very much compliant to his treatment. I checked the compliance data on his machine and the patient is averaging 8.1 hours of CPAP use per night and is using the machine every night and his leak is in order of 55 L/m and his AHI is down to 0.5. Nevertheless, the machine is not functioning and the patient is interested in update. He was to bed around 11 PM, wakes up 7 AM in the morning and his aport score is currently at 3. His weight has remained stable over the past 10 years. Does not fall asleep during day-to-day activities. 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 He is morbidly obese. He has other comorbidities including diabetes mellitus and hyperlipidemia and hypertension. No cardiac vascular complications. No nighttime chest pain or shortness of breath or heartburn. No restlessness his lower extremities. Review of Systems Constitutional: Reports daytime sleepiness, Reports fatigue Eyes: denies as per HPI, denies blurred vision, denies bulging eye, denies decreased vision, denies diplopia, denies discharge, denies dry eye, denies irritation, denies itching, denies pain, denies photophobia, denies loss of peripheral vision, denies loss of vision, denies tunnel vision/blind spots Ears: deny: decreased hearing, ear discharge, earache, tinnitus Ears, nose, mouth and throat: Reports as per HPI Breasts: absent: as per HPI, gynecomastia Cardiovascular: Reports as per HPI Respiratory: Reports sleep apnea Gastrointestinal: Reports as per HPI Genitourinary: Reports as per HPI Musculoskeletal: Reports as per HPI Musculoskeletal: absent: ankle pain, ankle stiffness, ankle swelling, as per HPI, elbow pain, elbow stiffness, elbow swelling, foot pain, foot stiffness, foot swelling, hand pain, hand stiffness, hand swelling, hip pain, hip stiffness, hip swelling, knee pain, knee stiffness, knee swelling, shoulder pain, shoulder stiffness, shoulder swelling, wrist pain, wrist stiffness, wrist swelling Integumentary: Reports as per HPI Neurological: Reports as per HPI Psychiatric: Reports as per HPI Endocrine: Reports as per HPI Hematologic/Lymphatic: Reports as per HPI Allergic/Immunologic: Reports as per HPI Past Medical History Past Medical History: Diabetes Mellitus, Hyperlipidemia, Hypertension, Sleep Apnea/CPAP/BIPAP Additional Past Medical History / Comment(s): uses cpap machine History of Any Multi-Drug Resistant Organisms: None Reported Past Surgical History: No Surgical Hx Reported Past Anesthesia/Blood Transfusion Reactions: No Reported Reaction Additional Past Anesthesia/Blood Transfusion Reaction / Comment(s): pt has never had general aa Past Psychological History: No Psychological Hx Reported Additional Psychological History / Comment(s): pt lives with jessi. is independant. Past Alcohol Use History: None Reported Past Drug Use History: None Reported - Past Family History Mother Family Medical History: Hypertension Additional Family Medical History / Comment(s): heart disease on mom's side of family Father History Unknown: Yes Medications and Allergies Home Medications and Allergies Comment(s): Metformin 500 mg twice a day, pioglitazone 30 mg by mouth daily, lisinopril hydrochlorothiazide 10/12.5 mg 1 tablet daily, glipizide 10 mg by mouth daily, Crestor 5 mg by mouth daily. Home Medications Medication Instructions Recorded Confirmed Type Lisinopril-Hctz 20-25 mg 1 tab PO DAILY 09/13/18 09/13/18 History [Zestoretic 20-25] metFORMIN HCL [Glucophage] 500 mg PO BID 09/13/18 09/13/18 History Ciprofloxacin HCl [Cipro] 500 mg PO Q12HR #14 tablet 09/18/18 Rx HYDROcodone/APAP 5-325MG [[place] 1 tab PO Q4HR PRN 3 Days #18 tab 09/18/18 Rx 5-325] metroNIDAZOLE [Flagyl] 500 mg PO TID #21 tab 09/18/18 Rx Allergies Allergy/AdvReac Type Severity Reaction Status Date / Time No Known Allergies Allergy Verified 09/13/18 18:52 Physical Exam BP is 124/76 with a pulse of 86 and the respiration of 20 and a temperature of 98.2 and a pulse ox of 96% on room air oxygen. Body mass index is 43.4 and the patient has an Seattle score of 3. Weight is 301. The patient appeared well nourished and normally developed. Vital signs as documented. Head exam is unremarkable. No scleral icterus or corneal arcus noted. Neck is without jugular venous distension, thyromegaly, or carotid bruits. Carotid upstrokes are brisk bilaterally. The patient is a Mallampati class IV with significant crowding of the posterior oropharynx. Lungs are clear to auscultation and percussion. Cardiac exam reveals the PMI to be normally sized and situated. Rhythm is regular. First and second heart sounds normal. No murmurs, rubs or gallops. Abdominal exam reveals normal bowel sounds, no masses, no organomegaly and no aortic enlargement. Extremities are nonedematous and both femoral and pedal pulses are normal.Examination of the skin revealed no evidence of significant rashes, suspicious appearing nevi or other concerning lesions.Neurologically, the patient is awake and alert and the patient does not have any focal neurological deficit. Cranial nerves are essentially intact. Assessment and Plan Plan: Obstructive sleep apnea, likely severe maintain on CPAP therapy at a pressure of 16 cm of water. Treatment has been successful for many years. The machine is malfunctioning and the patient is interested in an upgraded machine Morbid obesity with a BMI of 43.4 Chronic hypersomnia and food with CPAP therapy and the patient's Seattle score is currently at 30 Diabetes mellitus Hypertension Hyperlipidemia Plan The patient is a long-time CPAP user We'll proceed with a home sleep study to be established diagnosis Once the diagnosis is reestablished, will offer the patient an APAP machine pre ssures of 05/26 with the appropriate mask interface. The patient wants to maintain the air fit F 10 fullface mask medium size. This will be offered to him. 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 We'll continue to follow His previous DME is [facility] Sleep Note - Sleep Note Sleep Note: Temperature: Pulse Rate: Respiratory Rate: Blood Pressure: SpO2: Height: Weight: BMI: Neck Circumference:
== END ==
LOC: SLEEP 14:39
PROVIDERS: ATTEND Internal Medicine Critical Care Medicine
DX: G47.33 Obstructive sleep apnea (adult) (pediatric) (principal); Z99.89 Dependence on other enabling machines and devices; E66.01 Morbid (severe) obesity due to excess calories; Z68.41 Body mass index [BMI] 40.0-44.9, adult; I10 Essential (primary) hypertension; E78.5 Hyperlipidemia, unspecified; Z79.899 Other long term (current) drug therapy
CPT/HCPCS: 99202

== ENCOUNTER → 2023-03-21 | Outpatient (CLI) | payer BC ==
--- NOTE | 2023-03-21 16:03 | P.PN ---
Progress Note - Text Progress Note Date: 03/21/23 On today's evaluation of a 2022, I'm seeing this patient for a compliance check regarding his obstructive sleep apnea and ongoing CPAP therapy. The patient is known to have severe symptomatic obstructive sleep apnea and the patient has an AHI of 35. Is morbidly obese. He was able to obtain a newer generation ResMed 11 and the patient is coming in for a compliancy check. The machine is quiet. The patient does not snoring at nighttime. He is waking up refreshed and alert during the day. He is trying to lose weight over his weight has remained stable. I checked the compliance data on this patient and based on the data that has been collected between 02/18/2023 and 03/19/2023, the patient has utilized the machine 100% of the time and he has achieved more than 4 hours of usage 100% of the time and the patient has been averaging around 7 hours and 46 minutes of CPAP use per night. He remains on APAP mode pressures of 10/20 cm of water. His AHI while in treatment is down to 1.2. P 95th percentile pressure is around 13.2 and the leak is in the order of 38 L/m. He is using the air fit F 20 fullface mask and he has no major hypersomnia or sleepiness during the day. BP is 121/75, pulse is 74, respirations 16, weight is 289, Agness score is at 3 and pulse ox is 95% on room air oxygen Gen. appearance the patient is morbidly obese, calm and comfortable, not in acute distress. The patient appeared well nourished and normally developed. Vital signs as documented. Head exam is unremarkable. No scleral icterus or corneal arcus noted. Neck is without jugular venous distension, thyromegaly, or carotid bruits. Carotid upstrokes are brisk bilaterally. Lungs are clear to auscultation and percussion. Cardiac exam reveals the PMI to be normally sized and situated. Rhythm is regular. First and second heart sounds normal. No murmurs, rubs or gallops. Abdominal exam reveals normal bowel sounds, no masses, no organomegaly and no aortic enlargement. Extremities are nonedematous and both femoral and pedal pulses are normal.Examination of the skin revealed no evidence of significant rashes, suspicious appearing nevi or other concerning lesions.Neurologically, the patient is awake and alert and the patient does not have any focal neurological deficit. Cranial nerves are essentially intact. Assessment Severe symptomatic ESTEFANIA with an AHI of 35 and the patient is currently undergoing successful APAP therapy with pressures of 10/20 cm of water. Morbid obesity with a weight of 289 Chronic hypersomnia improved with CPAP therapy Diabetes mellitus type 2 Hypertension Hyperlipidemia Plan The patient will continue CPAP therapy at a pressures of 10/20 cm of water and he will continue using the air fit F 20 fullface mask. Compliance data was checked and the numbers are looking great and the patient is benefiting from the treatment. The patient has no specific complaints for now. Keep the same pressure settings. Encourage weight loss. Maintaining good sleep hygiene measures. See me back in the office one year's time.
== END ==
LOC: 3 N SLEEP 15:33
PROVIDERS: ATTEND Internal Medicine Critical Care Medicine
DX: G47.33 Obstructive sleep apnea (adult) (pediatric) (principal); E66.01 Morbid (severe) obesity due to excess calories; E11.9 Type 2 diabetes mellitus without complications; E78.5 Hyperlipidemia, unspecified; G47.10 Hypersomnia, unspecified; I10 Essential (primary) hypertension; Z99.89 Dependence on other enabling machines and devices; Z79.899 Other long term (current) drug therapy; Z79.84 Long term (current) use of oral hypoglycemic drugs